=== PATIENT | male | born 1940 | race Caucasian/White ===

== ENCOUNTER → 2017-01-29 | Outpatient (CLI) | payer MEDICARE, MEDICAID ==
[~2017-01-29] MED LIST: AMLO5TAB4 PO; ASPI-515 PO; ASPI-650 PO; CLOP75TA52 PO; FAMO-79 PO; FURO-92 PO; GABA-827 PO; HUM100VI SQ; INSU100V8 SQ; LISI-170 PO; METO25TA35 PO; METO50TA82 PO; POTA20PA PO; REGADENOSON 0.4 MG/5 ML SYRINGE ONE; SIMV40TA3 PO; TAMS-11 PO
== END | disposition home or self-care (01) ==
LOC: CFH 08:00
PROVIDERS: ATTEND Internal Medicine Cardiovascular Disease
DX: Z01.810 Encounter for preprocedural cardiovascular examination (principal)
CPT/HCPCS: 78452; 93017; A9502; J2785

== ENCOUNTER 2019-06-06 10:30 | Inpatient (IN) | payer MEDICARE, MEDICAID ==
[~2019-06-06] VITALS: Ht 165.1 cm; Wt 63.6 kg
[~2019-06-06 10:30] MED LIST changes: -POTA20PA PO; +POTA20PA31 PO; -REGADENOSON 0.4 MG/5 ML SYRINGE ONE
--- NOTE | 2019-06-06 10:45 | NUR ---
pt bib EMS. Pt c/o CP this AM. awoke him from sleep. pain 09/25. transfer from hospital after treatment for further eval. no pain now, Chest pressure now 07/26. pt on monitor. VSS
[2019-06-06] MEDS ORDERED: SODIUM CHLORIDE FLUSH 10ML SYR IVF ONE (11:00)
--- NOTE | 2019-06-06 11:05 | NUR ---
in room to see pt. no pain
[2019-06-06 11:33] LABS: TROPONIN I < 0.015 ng/mL (0.000-0.045)
[2019-06-06] MEDS ORDERED: SODIUM CHLORIDE FLUSH 10ML SYR IVF PRN (12:00)
--- NOTE | 2019-06-06 12:16 | NUR ---
ADMIT IN ROOM
[2019-06-06] MEDS ORDERED: ONDANSETRON ODT 4 MG PO PRN (12:30)
[2019-06-06] MEDS ORDERED: NITROGLYCERIN 0.4 MG/SPRAY SL PRN (12:30)
[2019-06-06] MEDS ORDERED: POLYETHYLENE GLYCOL 17 GM PACKET PO PRN (12:30)
[2019-06-06] MEDS ORDERED: ACETAMINOPHEN 325 MG TABLET PO PRN (12:30)
[2019-06-06] MEDS ORDERED: BISACODYL 10 MG SUPP PR PRN (12:30)
[2019-06-06] MEDS ORDERED: ONDANSETRON 2MG/ML, 2ML IVPush PRN (12:30)
[2019-06-06] MEDS ORDERED: DEXTROSE 50%, 50ML SYRINGE IVPush PRN (13:00)
[2019-06-06] MEDS ORDERED: GLUCAGON 1 MG IM PRN (13:00)
[2019-06-06] MEDS ORDERED: DEXTROSE 4 GM TAB.CHEW PO PRN (13:00)
[2019-06-06] MEDS: INSULIN LISPRO 100 UNITS/ML, PEN SQ-INSULIN SCH ×3 (13:00→21:00)
--- NOTE | 2019-06-06 13:16 | NUR ---
REPORT FROM OSORIO GROVER. PT SITTING RECLINED IN BED WATCHING TELEVISION. NAD NOTED AT THIS TIME. PT DENIES PAIN. BLANKET IN PLACE, SIDE RAIL UP WITH CALL LIGHT IN REACH. AWAITING ADMIT BED.
--- NOTE | 2019-06-06 14:27 | NUR ---
PT STANDS AT EDGE OF BED FOR URINAL USE. NAD NOTED AT THIS TIME. FAMILY AT BEDSIDE. SIDE RAIL UP, CALL LIGHT IN REACH, MONITORING IN PLACE.
--- NOTE | 2019-06-06 15:38 | NUR ---
PT LAYING BACK IN BED WATCHING TELEVISION. NAD NOTED AT THIS TIME. RESPIRATIONS EVEN AND UNLABORED. FAMILY AT BEDSIDE. INQUIRY TO THROUGHPUT FOR WAIT TIME FOR HOSPITAL BED. TP RN TO REPORT BACK.
--- NOTE | 2019-06-06 16:37 | NUR ---
Pt sitting reclined in bed watching television. NAD noted at this time. Respirations even and unlabored on RA. Urinal in reach. Call light in reach.
[2019-06-06 17:31] LABS: TROPONIN I < 0.015 ng/mL (0.000-0.045)
--- NOTE | 2019-06-06 17:42 | NUR ---
pt given meal tray, sat up further in bed to pt comfort. NAD noted at this time. Assistance given to prepare meal. Pt eating and watching television.
--- NOTE | 2019-06-06 18:31 | NUR ---
PT UP TO BEDSIDE FOR URINAL USE, BACK IN BED INDEPENDENTLY. LIGHTS DIMMED FOR PT COMFORT. NAD NOTED AT THIS TIME. RESPIRATIONS EVEN AND UNLABORED ON RA. AWAITING ADMIT BED.
--- NOTE | 2019-06-06 18:59 | NUR ---
REPORT TO OSORIO RUBIO.
--- NOTE | 2019-06-06 19:34 | NUR ---
PT RESTING ON HOSPITAL BED. CALL LIGHT WITHIN REACH. PT EDUCATED CEMENTER HAND LIGHT USE AND PROVIDED ADDITIONAL BLANKETS FOR COMFORT. UPDATED PT ON POC. ALL NEEDS MET AT THIS TIME.
--- NOTE | 2019-06-06 19:58 | NUR ---
RECEIVED REPORT FROM OSORIO RUBIO. ASSUMING CARE AT THIS TIME.
--- NOTE | 2019-06-06 20:06 | NUR ---
PT MOVED TO ROOM 33. REPORT GIVEN TO OSORIO MERLOS. PT RECOPNNECTED TO ALL MONITORING, CALL LIGHT WITHIN REACH, BED IN LOW POSITION.
--- NOTE | 2019-06-06 20:39 | NUR ---
MEDS REQUESTED FROM PHARMACY. PT FSBS [id number]
[2019-06-06] MEDS ORDERED: INSULIN SINGLE DOSE, ER ONE (20:57)
[2019-06-06] MEDS: SODIUM CHLORIDE FLUSH 10ML SYR IVF SCH (21:00)
[2019-06-06] MEDS ORDERED: METOPROLOL TARTRATE 50 MG TABLET PO SCH (21:00)
[2019-06-06] MEDS ORDERED: APIXABAN 2.5 MG TABLET PO SCH (21:00)
[2019-06-06] MEDS: SIMVASTATIN 40 MG TABLET PO SCH (21:02)
[2019-06-06] MEDS: METOPROLOL TARTRATE 25 MG TABLET PO SCH (21:02)
[2019-06-06] MEDS: GABAPENTIN 300 MG CAPSULE PO SCH (21:02)
--- NOTE | 2019-06-06 21:06 | NUR ---
MEDS ADMIN PER JUL. PT RESTING COMFORTABLY ON [employer]. SARWAT.
--- NOTE | 2019-06-06 22:20 | NUR ---
PT IS RESTING COMFORTABLY ON HOSPITAL BED WATCHING TV.
[2019-06-07] MEDS ORDERED: hydrALAzine 20 MG/ML, 1ML ONE (01:20)
[2019-06-07] MEDS: hydrALAzine 20 MG/ML, 1ML IVPush PRN ×2 (01:22→15:26)
--- NOTE | 2019-06-07 01:29 | NUR ---
IN TO CHECK ON PT. PT FOUND TO BE HYPERTENSIVE. PT THEN COMPLAINS OF HEADACHE AND 3/10 CP. PT MEDICATED PER JUL. REPEAT EKG BEING DONE.
[2019-06-07] MEDS ORDERED: NITROGLYCERIN SINGLE TAB 0.4 MG SL ONE (01:35)
[2019-06-07] MEDS ORDERED: ACETAMINOPHEN 325 MG TABLET ONE (01:51)
--- NOTE | 2019-06-07 01:55 | NUR ---
REPEAT EKG SEEN BY ER MD AND DR CAMERON. PT REQUESTING MOTRIN FOR HIS HEADACHE. POC DISCUSSED WITH DR CAMERON. NO NITRO TO BE GIVEN AT THIS TIME DUE TO HIS SIGNIFICANT DROP ON BP FROM 216 TO 109 SYSTOLICALLY. PT MEDICATED WITH APAP. CALL LIGHT ON LAP. PT DENIES FURTHER NEEDS AT THIS TIME.
--- NOTE | 2019-06-07 02:42 | NUR ---
PT NOW SLEEPING. NAD. OTHER THAN HIS BRADYCARDIA HIS VITALS ARE STABLE.
--- NOTE | 2019-06-07 03:40 | NUR ---
PT SLEEPING. NAD. VITALS REMAIN THE SAME.
[2019-06-07 04:36] LABS: BASOPHILS # (AUTO) 0.03 x10^3/uL (0-0.1); BASOPHILS % (AUTO) 0 % (0-1); EOSINOPHILS # (AUTO) 0.36 x10^3/uL (0-0.4); EOSINOPHILS % (AUTO) 5 % (1-7); LYMPHOCYTES # (AUTO) 1.75 x10^3/uL (1-3.4); LYMPHOCYTES % (AUTO) 22 % (22-44); MD NO; MEAN CORPUSCULAR HEMOGLOBIN 29.7 pg (27.5-34.5); MEAN CORPUSCULAR HGB CONC 33.4 g/dL (33.2-36.2); MEAN PLATELET VOLUME 6.9 fL (7.4-10.4); MONOCYTES # (AUTO) 0.64 x10^3/uL (0.2-0.8); MONOCYTES % (AUTO) 8 % (2-9); NEUTROPHILS # (AUTO) 5.18 x10^3/uL (1.8-6.8); NEUTROPHILS % (AUTO) 65 % (42-75); PLATELET COUNT 398 x10^3/uL (130-400); RED BLOOD COUNT 3.44 x10^6/uL (4.38-5.82); RED CELL DISTRIBUTION WIDTH 14.1 % (9.4-14.8)
[2019-06-07 04:44] LABS: ANION GAP 7 mmol/L (5-15); CALCIUM 8.4 mg/dL (8.5-10.1); CHLORIDE 111 mmol/L (98-107)
[2019-06-07 04:49] LABS: CHOL/HDL RATIO 6.7; CHOLESTEROL, TOTAL 174 mg/dL (140-239); CREATININE 1.46 mg/dL (0.7-1.3); HDL CHOL % 15 % (26-37); HDL CHOLESTEROL (DIRECT) 26 mg/dL (40-60); LDL CHOLESTEROL,CALCULATED 114 mg/dL (54-169); LDL/HDL RATIO 4.4 (0.5-3.0); TRIGLYCERIDES 168 mg/dL (50-200); VLDL CHOLESTEROL 34 mg/dL (0-25)
--- NOTE | 2019-06-07 05:02 | NUR ---
PT SLEEPING. NAD. VITALS SAME.
[2019-06-07] MEDS ORDERED: OMEPRAZOLE 20 MG CAPSULE.DR ONE (05:50)
[2019-06-07] MEDS: LEVOTHYROXINE 25 MCG TABLET PO SCH (05:54)
[2019-06-07] MEDS: OMEPRAZOLE 20 MG CAPSULE.DR PO SCH (05:54)
--- NOTE | 2019-06-07 05:55 | NUR ---
PT MEDICATED PER MAR. PT DENIES CURRENT COMPLAINTS. PT DENIES FURTHER NEEDS AT THIS TIME. CALL LIGHT ON LAP.
[2019-06-07] MEDS ORDERED: ASPIRIN 325 MG TABLET EC PO SCH (06:00)
--- NOTE | 2019-06-07 06:29 | NUR ---
PT UP TO RESTROOM FOR BM AT THIS TIME. PT AMBULATES SLOWLY BUT STEADY.
--- NOTE | 2019-06-07 06:53 | NUR ---
report from misty vogt. Pt resting, nad noted.
[2019-06-07] MEDS: INSULIN LISPRO 100 UNITS/ML, PEN SQ-INSULIN SCH ×4 (07:00→21:17)
--- NOTE | 2019-06-07 07:57 | NUR ---
cardiac rhythm strip printed and put on chart
[2019-06-07] MEDS: SODIUM CHLORIDE FLUSH 10ML SYR IVF SCH ×2 (09:00→21:18)
--- NOTE | 2019-06-07 09:07 | NUR ---
ISHAN MOSHER CALLED FOR CLARIFICATION OF ANTICOAGULANT ORDERED. THEY STATE THAT PT HAS BEEN ON XARELTO 20MG QD SINCE 12/07/18.
[2019-06-07] MEDS ORDERED: METOPROLOL TARTRATE 25 MG TABLET ONE (09:10)
[2019-06-07] MEDS ORDERED: FLUOXETINE HCL 20 MG CAPSULE ONE (09:10)
[2019-06-07] MEDS ORDERED: ASPIRIN 81 MG TABLET EC ONE (09:10)
[2019-06-07] MEDS ORDERED: GABAPENTIN 300 MG CAPSULE ONE (09:11)
[2019-06-07] MEDS: GABAPENTIN 300 MG CAPSULE PO SCH ×2 (09:13→21:00)
[2019-06-07] MEDS: ASPIRIN 81 MG TABLET EC PO SCH (09:13)
[2019-06-07] MEDS: FLUOXETINE HCL 20 MG CAPSULE PO SCH (09:13)
[2019-06-07] MEDS: METOPROLOL TARTRATE 25 MG TABLET PO SCH ×2 (09:13→21:00)
[2019-06-07 09:25] LABS: % IRON SATURATION 22 % (20-55); IRON LEVEL 43 mcg/dL (65-175); TOTAL IRON BINDING CAPACITY 197 mcg/dL (250-450)
[2019-06-07 09:28] LABS: TROPONIN I < 0.015 ng/mL (0.000-0.045)
--- NOTE | 2019-06-07 13:10 | NUR ---
FIRST CALL FOR REPORT.
--- NOTE | 2019-06-07 13:13 | NUR ---
REPORT FROM OSORIO MOTA. PT LAYING IN BED ASLEEP. AWAKENS EASILY. NOTIFIED THAT REPORT HAS BEEN GIVEN AND THAT HE WILL GO UPSTAIRS SHORTLY. PT VERBALIZES UNDERSTANDING. NAD NOTED AT THIS TIME. AWAITING TRANSPORT.
[2019-06-07 14:08] VITALS: BP 165/71
[2019-06-07 15:16] VITALS: BP 172/63
[2019-06-07 15:24] LABS: TROPONIN I < 0.015 ng/mL (0.000-0.045)
[2019-06-07 17:03] VITALS: BP 167/61
[2019-06-07] MEDS: RIVAROXABAN 15 MG TABLET PO SCH (17:52)
[2019-06-07 20:53] LABS: TROPONIN I < 0.015 ng/mL (0.000-0.045)
[2019-06-07 20:59] VITALS: BP 161/62
[2019-06-07] MEDS: SIMVASTATIN 40 MG TABLET PO SCH (21:07)
[2019-06-08] VITALS (13 sets, daily range): BP systolic 106–167; BP diastolic 53–78
[2019-06-08] MEDS: morphine SULFATE 10 MG/ML, 1ML IVPush PRN ×2 (00:24→23:35)
[2019-06-08] MEDS ORDERED: NITROGLYCERIN 0.4 MG/SPRAY SL PRN (01:00)
[2019-06-08] MEDS: NITROGLYCERIN 0.4 MG BOTTLE (25 TABS) SL PRN ×4 (01:36→05:59)
[2019-06-08 05:36] LABS: BASOPHILS # (AUTO) 0.03 x10^3/uL (0-0.1); BASOPHILS % (AUTO) 0 % (0-1); EOSINOPHILS # (AUTO) 0.26 x10^3/uL (0-0.4); EOSINOPHILS % (AUTO) 4 % (1-7); LYMPHOCYTES # (AUTO) 1.76 x10^3/uL (1-3.4); LYMPHOCYTES % (AUTO) 26 % (22-44); MD NO; MEAN CORPUSCULAR HEMOGLOBIN 29.8 pg (27.5-34.5); MEAN CORPUSCULAR VOLUME 90.2 fL (81-97); MEAN PLATELET VOLUME 7.1 fL (7.4-10.4); MONOCYTES # (AUTO) 0.63 x10^3/uL (0.2-0.8); MONOCYTES % (AUTO) 9 % (2-9); NEUTROPHILS # (AUTO) 4.11 x10^3/uL (1.8-6.8); NEUTROPHILS % (AUTO) 61 % (42-75); PLATELET COUNT 397 x10^3/uL (130-400); RED BLOOD COUNT 3.35 x10^6/uL (4.38-5.82); RED CELL DISTRIBUTION WIDTH 14.6 % (9.4-14.8)
[2019-06-08 05:47] LABS: ANION GAP 6 mmol/L (5-15); CHLORIDE 110 mmol/L (98-107)
[2019-06-08 05:48] LABS: CALCIUM 8.9 mg/dL (8.5-10.1); CREATININE 1.82 mg/dL (0.7-1.3)
[2019-06-08] MEDS: LEVOTHYROXINE 25 MCG TABLET PO SCH (05:54)
[2019-06-08] MEDS: OMEPRAZOLE 20 MG CAPSULE.DR PO SCH (05:54)
[2019-06-08] MEDS: INSULIN LISPRO 100 UNITS/ML, PEN SQ-INSULIN SCH ×4 (08:06→21:37)
[2019-06-08] MEDS: SODIUM CHLORIDE FLUSH 10ML SYR IVF SCH ×2 (08:07→21:11)
[2019-06-08] MEDS: ASPIRIN 81 MG TABLET EC PO SCH (08:08)
[2019-06-08] MEDS: GABAPENTIN 300 MG CAPSULE PO SCH ×2 (08:08→21:13)
[2019-06-08] MEDS: FLUOXETINE HCL 20 MG CAPSULE PO SCH (08:08)
[2019-06-08] MEDS: METOPROLOL TARTRATE 25 MG TABLET PO SCH ×2 (08:09→21:00)
[2019-06-08] MEDS: ISOSORBIDE MONONITRATE ER 30 MG TABLET PO SCH (10:47)
[2019-06-08] MEDS: AMLODIPINE 2.5 MG TABLET PO SCH (10:47)
[2019-06-08] MEDS: RIVAROXABAN 15 MG TABLET PO SCH (17:20)
[2019-06-08] MEDS ORDERED: ATORVASTATIN 20 MG TABLET PO SCH (21:00)
[2019-06-08] MEDS: DOCUSATE 100 MG CAPSULE PO PRN (21:12)
[2019-06-08] MEDS: FAMOTIDINE 20 MG TABLET PO SCH (21:13)
[2019-06-08] MEDS ORDERED: CALCIUM CARBONATE 500 MG TAB.CHEW PO PRN (23:30)
[2019-06-09 01:25] VITALS: BP 134/62
[2019-06-09 04:27] LABS: ANION GAP 5 mmol/L (5-15); CALCIUM 8.5 mg/dL (8.5-10.1); CHLORIDE 111 mmol/L (98-107); CREATININE 1.76 mg/dL (0.7-1.3)
[2019-06-09] MEDS: OMEPRAZOLE 20 MG CAPSULE.DR PO SCH (06:07)
[2019-06-09] MEDS: LEVOTHYROXINE 25 MCG TABLET PO SCH (06:07)
[2019-06-09 07:28] VITALS: BP 170/75
[2019-06-09] MEDS: METOPROLOL TARTRATE 25 MG TABLET PO SCH (07:28)
[2019-06-09] MEDS: ASPIRIN 81 MG TABLET EC PO SCH (07:45)
[2019-06-09] MEDS: ISOSORBIDE MONONITRATE ER 30 MG TABLET PO SCH (07:46)
[2019-06-09] MEDS: GABAPENTIN 300 MG CAPSULE PO SCH (07:46)
[2019-06-09] MEDS: FAMOTIDINE 20 MG TABLET PO SCH (07:46)
[2019-06-09] MEDS: INSULIN LISPRO 100 UNITS/ML, PEN SQ-INSULIN SCH ×2 (07:46→11:54)
[2019-06-09] MEDS: SODIUM CHLORIDE FLUSH 10ML SYR IVF SCH (07:46)
[2019-06-09] MEDS: FLUOXETINE HCL 20 MG CAPSULE PO SCH (07:46)
[2019-06-09] MEDS: AMLODIPINE 2.5 MG TABLET PO SCH (07:46)
[2019-06-09] MEDS: DOCUSATE 100 MG CAPSULE PO PRN (07:55)
[2019-06-09 12:35] VITALS: BP 149/70
[2019-06-09] MEDS ORDERED: METO25TA35 PO (12:45)
[2019-06-09] MEDS ORDERED: ATOR80TA PO (12:45)
[2019-06-09] MEDS ORDERED: AMLO2.5T5 PO (12:45)
[2019-06-09] MEDS ORDERED: ISOS30TA8 PO (12:45)
== END 2019-06-09 14:05 | DRG 313 ==
LOC: ED 11:11 → INTOOBSV 11:46 → EDIP 11:46 → OBSVTOIN 12:16 → 5SO 06-07 14:02
PROVIDERS: ADMIT Internal Medicine; ATTEND Internal Medicine
DX: R07.89 Other chest pain (principal); I48.20 Chronic atrial fibrillation, unspecified; D68.59 Other primary thrombophilia; I25.110 Atherosclerotic heart disease of native coronary artery with unstable angina pectoris; D64.9 Anemia, unspecified; I10 Essential (primary) hypertension; E03.9 Hypothyroidism, unspecified; Z96.611 Presence of right artificial shoulder joint; E11.51 Type 2 diabetes mellitus with diabetic peripheral angiopathy without gangrene; E78.5 Hyperlipidemia, unspecified; J44.9 Chronic obstructive pulmonary disease, unspecified; N40.0 Benign prostatic hyperplasia without lower urinary tract symptoms; Z79.01 Long term (current) use of anticoagulants; Z79.4 Long term (current) use of insulin; Z86.73 Personal history of transient ischemic attack (TIA), and cerebral infarction without residual deficits; Z87.891 Personal history of nicotine dependence; Z95.1 Presence of aortocoronary bypass graft; Z95.5 Presence of coronary angioplasty implant and graft; Z88.0 Allergy status to penicillin; Z88.1 Allergy status to other antibiotic agents; Z79.899 Other long term (current) drug therapy
CPT/HCPCS: 36415; 71045; 78452; 80048; 80061; 82962; 83036; 83540; 83550; 83735; 84484; 85025; 93005; 93306; 93356; 99285; G0378; A9502; J0360; J1815; J2270